=== PATIENT | male | born 1995 | race Caucasian/White ===

== ENCOUNTER 2022-07-14 08:38 | Emergency (ER) | payer BC ==
[2022-07-14] MEDS ORDERED: Acetaminophen 325 MG Tab PO ONE (08:54)
[2022-07-14] MEDS ORDERED: Ibuprofen 400 MG Tab PO ONE (08:54)
== END 2022-07-14 11:07 | disposition home or self-care (01) ==
LOC: MW.ED 08:38
DX: S00.33XA Contusion of nose, initial encounter (principal); S09.90XA Unspecified injury of head, initial encounter; Z88.0 Allergy status to penicillin; W20.8XXA Other cause of strike by thrown, projected or falling object, initial encounter
CPT/HCPCS: 70450; 70486; 99283; A9270